=== PATIENT | male | born 1970 | race Hispanic/Latino ===

== ENCOUNTER 2018-01-16 16:53 | Observation (INO) | payer OTHER, SELFPAY ==
[~2018-01-16 16:53] MED LIST: Dexamethasone 20 MG/5 ML VIAL ONE; Glycopyrrolate 0.2 MG/ML 5 ML SYRINGE ONE; ISOVUE-370 76%-LOCM 1 ML ONE; Ketorolac Tromethamine 30 MG/ML VIAL ONE; Lidocaine 1% PF 5 ML VIAL ONE; Ondansetron PF 4 MG/2 ML Vial ONE; PROPOFOL 200 MG/20 ML VIAL ONE; Succinylcholine Chloride 20 MG/ML 10 ml SYRINGE FS ONE
--- NOTE | 2018-01-16 18:01 | RAD ---
CHEST TWO VIEWS: HISTORY: The patient reports a shaky feeling and sweating 30 minutes ago. COMPARISON: 08/20/2015 FINDINGS: Normal cardiac silhouette. Pulmonary vessels and hilum are normal. Lung volumes are diminished, lik michelet due to poor inspiratory effort. No consolidation or mass. No pneumothorax or osseous abnormalit ies. IMPRESSION: No acute cardiopulmonary process. POS: PPP
[2018-01-16 18:18] LABS: #Basophils 0.1 thou/uL (0.0-0.2); #Lymphocytes 0.5 thou/uL (1.20-3.40); #Monocytes 0.1 thou/uL (0.11-0.59); #Neutrophils 10.4 thou/uL (1.40-6.50); %Basophils 0.6 % (0.0-1.0); %Lymphocytes 4.5 % (21.0-51.0); %Monocytes 1.3 % (0.0-10.0); %Neutrophils 93.6 % (42.0-75.0); Hemoglobin 15.4 g/dL (14.0-18.0); Mean Corpuscular HGB CONC 34.9 g/dL (32.0-36.0); Mean Corpuscular Volume 91.5 fL (78.0-98.0); Mean Platelet Volume 8.4 fL (7.4-10.4); Platelet Count 168 thou/uL (130-400); RBC Distribution Width 11.9 % (11.5-14.5); Red Blood Cell (RBC) Count 4.82 mill/uL (4.70-6.10); White Blood Cell (WBC) Count 11.1 thou/uL (4.8-10.8)
[2018-01-16 18:41] LABS: ALT (SGPT) 21 U/L (8-55); AST (SGOT) 16 U/L (5-34); Albumin 4.3 g/dL (3.5-5.0); Alkaline Phosphatase 85 U/L (40-150); Anion Gap 18 mmol/L (10-20); BUN (Urea Nitrogen) 17 mg/dL (8.9-20.6); Bilirubin, Total 1.6 mg/dL (0.2-1.2); Calc. Creatinine Clearance 0 mL/min (70-130); Calcium 9.2 mg/dL (7.8-10.44); Carbon Dioxide 17 mmol/L (22-29); Chloride 106 mmol/L (98-107); Estimated GFR-MDRD 75; Globulin 3.5 g/dL (2.4-3.5); Glucose 136 mg/dL (70-105); Lipase 16 U/L (8-78); Potassium 3.1 mmol/L (3.5-5.1); Protein, Total 7.8 g/dL (6.0-8.3); Sodium 138 mmol/L (136-145)
[2018-01-16] MEDS ORDERED: Acetaminophen 500 MG TAB ONE (19:21)
[2018-01-16] MEDS ORDERED: Piperacillin/Tazobactam 4.5 GM VIAL ONE (19:21)
--- NOTE | 2018-01-16 20:09 | CT ---
ABDOMEN CT WITH CONTRAST: PELVIS CT WITH CONTRAST: HISTORY: Fever. Chills. Dizziness. Epigastric pain. COMPARISON: None. FINDINGS: ABDOOMEN: The lung bases are clear. The heart size is normal. No significant pericardial fluid. T he visualized aorta is unremarkable. The intrahepatic and extrahepatic portal vein and gallbladder are unremarkable. The liver, spleen, pancreas, and adrenal glands have appropriate enhancement. No gastrohepatic, retrocrural, or periportal lymphadenopathy. No mesenteric mass or free air. There are a few scattered nonspecific mesenteric lymph nodes. Symmetric enhancement of the kidneys. Bilaterally, no obstructive uropathy. Limited evaluation of the alimentary canal due to lack of oral contrast. No evidence of small bowel obstruction. There is mild inflammatory change involving the terminal ileum and distal ileum, which is felt to be reactive, secondary to a dilated, fluid-filled appendix with periappendical fat strandi ng. The appendix measures 1.3 cm. Mild fluid at the cecal apex. The remainder of the colon is unre markable. There are scattered diverticula. No evidence of diverticulitis. There is stranding of the right lower quadrant mesentery. No evidence of abscess. PELVIS: No mass, lymphadenopathy, or free air. Unremarkable urinary bladder. No lytic or blastic lesions in the osseous structures. IMPRESSION: Appendicitis. The results of the study were discussed with Dr. Vazquez on 01/16/2018 at 7:43 p.m. CODE CR POS: MINE
[2018-01-16] MEDS ORDERED: Bupivacaine/Epinephrine 0.25% 30 ML VIAL ONE (20:19)
[2018-01-16 20:21] LABS: Bilirubin Negative (Negative); Blood, Urine Negative (Negative); Clarity CLEAR (Clear); Glucose, Urine (Dipstick) Negative (Negative); Leukocyte Negative (Negative); Nitrite Negative (Negative); Protein, Urine (Dipstick) Trace mg/dL (Neg-Trace); Specific Gravity, Urine 1.042 (1.002-1.036); Urobilinogen 0.2 mg/dL (0.2-1.0); pH, Urine 5.5 (5.0-9.0)
[2018-01-16] MEDS ORDERED: Potassium Chloride 20 MEQ/100 ML PREMIX BAG ONE (20:33)
[2018-01-16] MEDS ORDERED: Fentanyl 100 MCG/2 ML VIAL ONE (20:46)
--- NOTE | 2018-01-16 21:17 | HP ---
DATE OF ADMISSION: 01/16/2018 CHIEF COMPLAINT: Lower abdominal pain. HISTORY OF PRESENT ILLNESS: This is a 47-year-old male who had chills and just felt bad[facility] had lower abdominal pain. A CT scan reveals acute appendicitis without perforatio n, never had pain like this before. Denies chronic abdominal pain. No history of inflammatory bowel disease or Crohn's, not associated with significant nausea or vomiting. PAST MEDICAL HISTORY: Includes hypertension. PAST SURGICAL HISTORY: Denies. MEDICINES TAKEN DAILY: Unknown blood pressure medication. ALLERGIES: No known drug allergies. SOCIAL HISTORY: No smoking, alcohol, or other drugs. REVIEW OF SYSTEMS: Ten-system review of systems otherwise negative unless described above. PHYSICAL EXAMINATION: VITAL SIGNS: Blood pressure 124/81, pulse 115, respirations 12. He is afebrile. HEENT: Sclerae are anicteric. Oropharynx clear. NECK: No lymphadenopathy. CHEST: Clear. HEART: Regular rate and rhythm. ABDOMEN: Soft, tender in the right lower quadrant with localized guarding, no rebound. X-RAY FINDINGS: CT scan shows acute appendicitis. ASSESSMENT: Acute appendicitis. PLAN: Laparoscopic appendectomy. Risks, benefits, and alternatives were discussed. He gives consen t. We will do this today.
[2018-01-16] MEDS ORDERED: Promethazine HCl 25 MG/ML VIAL IM PRN ×2 (22:01→22:40)
[2018-01-16] MEDS ORDERED: PACU-Morphine 4MG/ML VIAL SLOW IVP PRN (22:01)
[2018-01-16] MEDS ORDERED: Meperidine HCl/PF 25 MG/ML VIAL ONE (22:01)
[2018-01-16] MEDS ORDERED: Meperidine HCl/PF 25 MG/ML VIAL SLOW IVP PRN (22:01)
[2018-01-16] MEDS ORDERED: Promethazine HCl 25 MG/ML VIAL SLOW IVP PRN (22:01)
[2018-01-16] MEDS ORDERED: HYDROmorphone 2 MG/ML VIAL SLOW IVP PRN (22:01)
[2018-01-16] MEDS ORDERED: Ondansetron HCl/PF 4 MG/2 ML Vial IVP PRN (22:01)
[2018-01-16] MEDS ORDERED: NS 0.9% w/ 40 MEQ KCL 1,000 ML IV SCH (22:15)
--- NOTE | 2018-01-16 22:30 | OP ---
DATE OF PROCEDURE: 01/16/2018 PREOPERATIVE DIAGNOSIS: Perforated appendicitis. POSTOPERATIVE DIAGNOSIS: Perforated appendicitis. PROCEDURE PERFORMED: Laparoscopic appendectomy. SURGEON: Waldemar Morgan M.D. ANESTHESIA: General. ESTIMATED BLOOD LOSS: Minimal. COMPLICATIONS: None. SPECIMEN: Appendix. FINDINGS: Appendicitis. TECHNIQUE: The patient was taken to the operating room and placed supine on the table. After genera l anesthetic was obtained, Chawla catheter was placed. The abdomen was shaved, prepped, and draped in a sterile fashion. Curved incision made below the umbilicus. Cautery was used to dissect down to a nd score the fascia. Abdominal cavity was entered bluntly using a Shellie clamp. Holding stitch of PD S was placed on each side of the fascia. Howard trocar was placed. High-flow pneumoperitoneum was o btained. Suprapubic 5-mm port and left lower quadrant 5-mm port were placed under direct visualizati on. The cecum was rolled over to reveal acute appendicitis. There was perforation in about the mid appendix. A window was made at the base of the appendix and mesoappendix. Laparoscopic stapler was fired across the base of the appendix. A vascular reload fired across the mesoappendix. Appendix pl aced in an Endocatch bag and brought out through the Howard. The right lower quadrant pelvis and abd omen was irrigated using 6 liters of warm sterile solution until returns were clear. There was no da mage to any intraabdominal structures. All port sites were infiltrated using local anesthetic. All ports were removed under camera visualization. Pneumoperitoneum was let down. PDS was used to close the fascial defect below the umbilicus. All incisions were irrigated and closed using 4-0 Monocryl and Dermabond. The patient was en route to recovery in stable condition. All instrument counts, nee dle counts, lap counts were correct.
[2018-01-16] MEDS ORDERED: Dextrose 5% in Water 1,000 ML IV PRN (22:40)
[2018-01-16] MEDS ORDERED: Dextrose 50% Abboject 50 ML SYRINGE SLOW IVP PRN (22:40)
[2018-01-16] MEDS ORDERED: Morphine 2 MG/ML SYRINGE SLOW IVP PRN (22:40)
[2018-01-16] MEDS ORDERED: hydrALAZINE 20 MG/ML VIAL SLOW IVP PRN (22:40)
[2018-01-16] MEDS ORDERED: Ondansetron PF 4 MG/2 ML Vial IVP PRN (22:40)
[2018-01-16 23:04] LABS: Lactic Acid 3.2 mmol/L (0.5-2.2)
[2018-01-16] MEDS: Morphine 4 MG/ML VIAL SLOW IVP PRN (23:12)
[2018-01-16] MEDS: Sodium Chloride 0.9% 1,000 ML IV SCH (23:19)
[2018-01-16 23:45] VITALS: BMI 29.7
[2018-01-16] MEDS: HYDROcodone/Acetaminophen 10/325 mg Tablet PO PRN (23:49)
[2018-01-17] MEDS: Piperacillin/Tazobactam 3.375 GM in Sodium Chloride 0.9% 100 ML IVPB SCH ×4 (02:16→21:26)
[2018-01-17 05:57] LABS: #Lymphocytes 0.8 thou/uL (1.20-3.40); #Monocytes 0.4 thou/uL (0.11-0.59); #Neutrophils 11.8 thou/uL (1.40-6.50); %Basophils 0.2 % (0.0-1.0); %Eosinophils 0.1 % (0.0-10.0); %Monocytes 2.9 % (0.0-10.0); %Neutrophils 90.7 % (42.0-75.0); Hemoglobin 13.7 g/dL (14.0-18.0); Mean Corpuscular HGB CONC 33.7 g/dL (32.0-36.0); Mean Corpuscular Hemoglobin 31.3 pg (27.0-31.0); Mean Corpuscular Volume 92.9 fL (78.0-98.0); Mean Platelet Volume 9.1 fL (7.4-10.4); Platelet Count 153 thou/uL (130-400); RBC Distribution Width 11.9 % (11.5-14.5); Red Blood Cell (RBC) Count 4.36 mill/uL (4.70-6.10)
[2018-01-17 06:17] LABS: Anion Gap 14 mmol/L (10-20); BUN (Urea Nitrogen) 15 mg/dL (8.9-20.6); Calc. Creatinine Clearance 117 mL/min (70-130); Calcium 8.1 mg/dL (7.8-10.44); Carbon Dioxide 21 mmol/L (22-29); Chloride 107 mmol/L (98-107); Estimated GFR-MDRD 79; Glucose 182 mg/dL (70-105); Sodium 138 mmol/L (136-145)
[2018-01-17] MEDS: Sodium Chloride 0.9% 1,000 ML IV SCH ×2 (06:37→17:16)
[2018-01-17] MEDS: Famotidine/PF 20 mg/2ml Vial SLOW IVP SCH ×2 (08:44→21:26)
[2018-01-17] MEDS: Famotidine 20 MG TAB PO SCH ×2 (08:47→21:27)
[2018-01-17] MEDS: Morphine 4 MG/ML VIAL SLOW IVP PRN (08:51)
--- NOTE | 2018-01-17 09:11 | PRG ---
DATE OF SERVICE: 01/17/2018 SUBJECTIVE: Mr. Ritchie notes bloating, but no nausea, no vomiting. Urinating without difficulty. PHYSICAL EXAMINATION: VITAL SIGNS: Blood pressure is 115/82, pulse 99, and respirations 98.7. ABDOMEN: Soft. His wounds are healing well. LABORATORY DATA: His white cell count is 13, hemoglobin 13, platelet count is 153. Creatinine 1.01. ASSESSMENT: Postop day #1 gastric laparoscopic appendectomy for perforated appendicitis. PLAN: Continue Zosyn. Recheck labs in the morning. Suspect he will be home tomorrow if he tolerate s diet.
[2018-01-17] MEDS: HYDROcodone/Acetaminophen 10/325 mg Tablet PO PRN ×2 (15:28→21:25)
[2018-01-18] MEDS: Piperacillin/Tazobactam 3.375 GM in Sodium Chloride 0.9% 100 ML IVPB SCH ×2 (01:00→09:24)
[2018-01-18] MEDS: Sodium Chloride 0.9% 1,000 ML IV SCH ×2 (01:00→14:26)
[2018-01-18 08:15] LABS: #Lymphocytes 1.7 thou/uL (1.20-3.40); #Monocytes 0.4 thou/uL (0.11-0.59); #Neutrophils 10.1 thou/uL (1.40-6.50); %Basophils 0.2 % (0.0-1.0); %Eosinophils 0.1 % (0.0-10.0); %Lymphocytes 13.6 % (21.0-51.0); %Monocytes 3.6 % (0.0-10.0); %Neutrophils 82.5 % (42.0-75.0); Hemoglobin 13.1 g/dL (14.0-18.0); Mean Corpuscular HGB CONC 33.2 g/dL (32.0-36.0); Mean Corpuscular Hemoglobin 31.4 pg (27.0-31.0); Mean Corpuscular Volume 94.6 fL (78.0-98.0); Mean Platelet Volume 8.5 fL (7.4-10.4); Platelet Count 145 thou/uL (130-400); Red Blood Cell (RBC) Count 4.16 mill/uL (4.70-6.10); White Blood Cell (WBC) Count 12.3 thou/uL (4.8-10.8)
[2018-01-18 08:33] VITALS: TEMP 97.8
[2018-01-18] MEDS: Famotidine/PF 20 mg/2ml Vial SLOW IVP SCH (09:15)
[2018-01-18] MEDS: Famotidine 20 MG TAB PO SCH (09:24)
[2018-01-18] MEDS: HYDROcodone/Acetaminophen 10/325 mg Tablet PO PRN ×2 (09:28→13:22)
--- NOTE | 2018-01-18 12:15 | DIS ---
DATE OF ADMISSION: 01/16/2018 DATE OF DISCHARGE: 01/18/2018 DIAGNOSIS: Perforated appendicitis. DISCHARGE DIAGNOSIS: Perforated appendicitis. PROCEDURES: Laparoscopic appendectomy, washout by Dr. Morgan without complication. CONDITION AT DISCHARGE: Improved. STAFF: Dr. Waldemar Morgan. On postop day #2, patient is doing well, tolerating diet, afebrile. White blood cell count is down t o 12. He is being discharged home on Cipro and Flagyl. He was given [place] for pain.
[2018-01-18 12:40] VITALS: BP 148/99
== END 2018-01-18 13:45 | disposition home or self-care (01) ==
LOC: ERS 16:53 → SDC/OP 21:02 → SURG A 21:05
PROVIDERS: ADMIT Surgery; ATTEND Surgery
PROC: 0DTJ4ZZ Resection of Appendix, Percutaneous Endoscopic Approach (ICD-10-PCS; principal; 2018-01-16)
DX: K35.32 Acute appendicitis with perforation, localized peritonitis, and gangrene, without abscess (principal); I10 Essential (primary) hypertension; Z79.2 Long term (current) use of antibiotics; Z79.899 Other long term (current) drug therapy
CPT/HCPCS: 36415; 71046; 74177; 80048; 80053; 81003; 83605; 83690; 85025; 87040; 87076; 87077; 87149; 87186; 87804; 88304; 93005; 96361; 96365; 96366; 96367; 96375; 96376; G0378; J0360; J1100; J1885; J2001; J2175; J2270; J2405; J2543; J2704; J3010; J3370; J3475; J3480; J7050; S0028

== ENCOUNTER 2018-09-12 13:02 | Observation (INO) | payer OTHER, SELFPAY ==
[2018-09-12] MEDS ORDERED: Nitroglycerin 2% Ointment 1 INCH/1 GM Packet ONE (13:21)
[2018-09-12 13:23] LABS: #Basophils 0.1 thou/uL (0.0-0.2); #Eosinphils 0.3 thou/uL (0.0-0.7); #Monocytes 0.6 thou/uL (0.11-0.59); #Neutrophils 4.4 thou/uL (1.40-6.50); %Basophils 0.9 % (0.0-1.0); %Eosinophils 4.3 % (0.0-10.0); %Lymphocytes 27.2 % (21.0-51.0); %Neutrophils 59.6 % (42.0-75.0); Hemoglobin 14.6 g/dL (14.0-18.0); Mean Corpuscular HGB CONC 32.7 g/dL (32.0-36.0); Mean Corpuscular Hemoglobin 31.2 pg (27.0-31.0); Mean Corpuscular Volume 95.5 fL (78.0-98.0); Mean Platelet Volume 8.3 fL (7.4-10.4); Platelet Count 177 thou/uL (130-400); RBC Distribution Width 12.1 % (11.5-14.5); Red Blood Cell (RBC) Count 4.66 mill/uL (4.70-6.10); White Blood Cell (WBC) Count 7.4 thou/uL (4.8-10.8)
--- NOTE | 2018-09-12 13:25 | RAD ---
EXAM: Single view of the chest HISTORY: Chest pain COMPARISON: 08/19/2013 FINDINGS: Single view of the chest shows a normal sized cardiomediastinal silhouette. There is no lavon dence of consolidation, mass, or pleural effusion. The bones are unremarkable. IMPRESSION: No evidence of acute cardiopulmonary disease
[2018-09-12 13:44] LABS: ALT (SGPT) 49 U/L (8-55); AST (SGOT) 38 U/L (5-34); Albumin 4.3 g/dL (3.5-5.0); Alkaline Phosphatase 98 U/L (40-150); Anion Gap 12 mmol/L (10-20); BUN (Urea Nitrogen) 12 mg/dL (8.9-20.6); Bilirubin, Total 0.8 mg/dL (0.2-1.2); Calc. Creatinine Clearance 0 mL/min (70-130); Calcium 9.5 mg/dL (7.8-10.44); Carbon Dioxide 25 mmol/L (22-29); Chloride 104 mmol/L (98-107); Estimated GFR-MDRD Greater than 90; Globulin 3.5 g/dL (2.4-3.5); Glucose 124 mg/dL (70-105); Potassium 3.9 mmol/L (3.5-5.1); Protein, Total 7.8 g/dL (6.0-8.3); Sodium 137 mmol/L (136-145)
[2018-09-12] MEDS ORDERED: Acetaminophen 500 MG TAB ONE (13:51)
[2018-09-12] MEDS ORDERED: Aspirin 325 MG TAB ONE (14:09)
[2018-09-12 16:35] LABS: Troponin I Less than 0.010 ng/mL (< 0.028)
[2018-09-12 17:18] VITALS: BMI 29.5
[2018-09-12] MEDS ORDERED: Acetaminophen 325 MG TAB PO PRN (17:19)
[2018-09-12 19:48] LABS: Troponin I Less than 0.010 ng/mL (< 0.028)
[2018-09-12] MEDS ORDERED: hydrALAZINE 20 MG/ML VIAL SLOW IVP PRN (20:06)
[2018-09-12] MEDS ORDERED: Nitroglycerin 0.4 MG TAB (25 Tab Bottle) SL PRN (20:06)
[2018-09-12] MEDS ORDERED: Acetaminophen 500 MG TAB PO PRN (20:06)
[2018-09-12] MEDS ORDERED: Ondansetron ODT 4 MG TAB PO PRN (20:06)
[2018-09-12] MEDS ORDERED: Losartan 25 MG TAB PO SCH (20:15)
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
[2018-09-13 06:19] LABS: Hemoglobin A1c 5.4 % (4.0-6.0)
[2018-09-13 06:32] LABS: Cardiac Risk 3.5 (Less than 4.5)
[2018-09-13] MEDS ORDERED: Losartan 25 MG TAB PO SCH ×2 (09:00→21:00)
[2018-09-13] MEDS ORDERED: Aspirin 81 mg Enteric Coated Tablet PO SCH (09:00)
--- NOTE | 2018-09-13 13:03 | NM ---
NUCLEAR MEDICINE CARDIAC PERFUSION EXAMINATION: HISTORY: A 48-year-old male with chest pain and hypertension. TECHNIQUE: A single day nuclear medicine cardiac perfusion examination was performed. Rest images were obtained using 9.9 millicuries of technetium 99m sestamibi. Stress images were obtained using 30.9 millicuri es of technetium 99m sestamibi. This was given at the peak of exercise on a treadmill, using a Maxx protocol. The patient achieved 88% maximum predicted heart rate. FINDINGS: Tomographic images show no fixed or reversible perfusion defects. Gated SPECT images show normal wal l motion with an ejection fraction of 63%. EDV is 110 mL. LHR is 0.3. TID is 1.0. IMPRESSION: No evidence of ischemia. POS: C
[2018-09-13 13:13] VITALS: BP 154/98; TEMP 98.3
== END 2018-09-13 14:26 | disposition home or self-care (01) ==
LOC: ERS 13:02 → 2SW 14:19
PROVIDERS: ADMIT Internal Medicine; ATTEND Internal Medicine
DX: I16.0 Hypertensive urgency (principal); R07.89 Other chest pain; R73.09 Other abnormal glucose; Z91.14 Patient's other noncompliance with medication regimen
CPT/HCPCS: 36415; 71045; 78452; 80053; 80061; 83036; 83880; 84484; 85025; 93005; 93017; 94760; A9500; G0378

== ENCOUNTER 2024-02-08 21:06 | Emergency (ER) | payer SELFPAY ==
[2024-02-08] MEDS ORDERED: Lidocaine 1% PF 5 ML VIAL ONE (22:49)
[2024-02-08] MEDS ORDERED: Boostrix 0.5 ML (Tdap) VIAL (>/=7 yrs of age) ONE (22:49)
== END 2024-02-08 23:35 | disposition home or self-care (01) ==
LOC: ERS 21:06
DX: S61.216A Laceration without foreign body of right little finger without damage to nail, initial encounter (principal); I10 Essential (primary) hypertension; Z23 Encounter for immunization; W26.8XXA Contact with other sharp object(s), not elsewhere classified, initial encounter
CPT/HCPCS: 12001; 90471; 90715